=== PATIENT | female | born 1960 | race Caucasian/White ===

== ENCOUNTER 2017-03-14 19:01 | Emergency (ER) | payer MEDICAID ==
[~2017-03-14] VITALS: Ht 167.6 cm; Wt 88.0 kg
[~2017-03-14 19:01] MED LIST: HIBI4LIQ TOPICAL; LISI10TA3 PO; MUPI2OIN TOPICAL; NAPR500T PO
[2017-03-14 19:03] VITALS: BP 182/116; PULSE 99; RESP 16; TEMP 98.7; O2SAT 97
== END 2017-03-14 21:15 | disposition left against medical advice (07) ==
LOC: NED 19:01
DX: M54.9 Dorsalgia, unspecified (principal)
CPT/HCPCS: 99281